=== PATIENT | male | born 1990 | race Caucasian/White ===

== ENCOUNTER 2017-02-17 16:45 | Emergency (ER) | payer BC, OTHER ==
[~2017-02-17] VITALS: Ht 170.2 cm; Wt 108.0 kg
[~2017-02-17 16:45] MED LIST: RANI150T3 PO
[2017-02-17 16:49] VITALS: TEMP 36.7; Ht 170.2 cm; Wt 108.0 kg
[2017-02-17] MEDS ORDERED: PRLSR20 PO (17:09)
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
[2017-02-17 17:48] VITALS: BP 145/78; PULSE 76; O2SAT 98
== END 2017-02-17 17:48 | disposition home or self-care (01) ==
LOC: EDBD 16:45 → C.EDC 16:46
DX: S06.0X0A Concussion without loss of consciousness, initial encounter (principal); S29.012A Strain of muscle and tendon of back wall of thorax, initial encounter; S80.212A Abrasion, left knee, initial encounter; V87.7XXA Person injured in collision between other specified motor vehicles (traffic), initial encounter; F90.9 Attention-deficit hyperactivity disorder, unspecified type; Z79.899 Other long term (current) drug therapy